=== PATIENT | female | born 1955 | race Caucasian/White ===

== ENCOUNTER 2018-02-08 15:10 | Emergency (ER) | payer OTHER ==
[~2018-02-08] VITALS: Ht 167.6 cm; Wt 83.9 kg
[~2018-02-08 15:10] MED LIST: ASPIRIN325 MG PO; CIPRO 400400 MG/200 IV; CIPRO500 MG PO; DELTASONE10 MG; ENDOMETRIN100 MG PO; FLAGYL500 M1 IV; IRON324 MG PO; KLONOPIN2 MG PO; LYSINE1000 MG PO; MORPHINE4 MG IV; MOTRIN600 MG PO; MOTRIN800 MG PO; MS CONTIN30 MG PO; NEURONTIN100 MG PO; PERCOCET 325 MG1 TA2 PO; PREDNISONE20 MG PO; PRILOSEC20 MG PO; PRILOSEC40 MG PO; RESTORIL15 MG PO; SYNTHROID0.1 MG PO; SYNTHROID0.112 MG PO; VENTOLIN0.09 MG/AC PO; VICO10300 PO; ZITHROMAX Z PA250 MG PO; ZITHROMAX500 MG
[2018-02-08 15:14] VITALS: BP 128/95
== END 2018-02-08 17:08 | disposition home or self-care (01) ==
LOC: ED 15:10
DX: S93.401A Sprain of unspecified ligament of right ankle, initial encounter (principal); M77.31 Calcaneal spur, right foot; Z98.890 Other specified postprocedural states; Z90.49 Acquired absence of other specified parts of digestive tract; Z79.899 Other long term (current) drug therapy; Z88.0 Allergy status to penicillin; Z88.2 Allergy status to sulfonamides; Z88.8 Allergy status to other drugs, medicaments and biological substances; W01.0XXA Fall on same level from slipping, tripping and stumbling without subsequent striking against object, initial encounter; Y93.89 Activity, other specified; Y92.89 Other specified places as the place of occurrence of the external cause; Y99.9 Unspecified external cause status

== ENCOUNTER 2018-08-02 16:13 | Emergency (ER) | payer OTHER ==
[~2018-08-02] VITALS: Ht 165.1 cm; Wt 82.6 kg
[2018-08-02 16:15] VITALS: BP 115/58
[2018-08-02 17:03] LABS: BASO % 0.6 % (0.0-1.0); EOS # 0.1 10*3/uL (0.0-0.4); EOS % 2.3 % (1.0-4.0); HEMATOCRIT 38.1 % (37.0-47.0); HEMOGLOBIN 12.9 g/dl (12.0-16.0); LYMPH # 1.9 10*3/uL (1.3-4.4); LYMPH % 30.3 % (27.0-41.0); MEAN CELL VOLUME 86.4 fl (81.0-99.0); MEAN CORPUSCULAR HGB 29.3 pg (27.0-31.0); MEAN CORPUSCULAR HGB CONC 33.9 g/dl (33.0-37.0); MEAN PLATELET VOLUME 8.9 fl (9.6-12.3); MONO # 0.4 10*3/uL (0.1-1.0); MONO % 5.8 % (3.0-9.0); NEUT # 3.8 10*3/uL (2.3-7.9); NEUT % 60.5 % (47.0-73.0); PLATELET COUNT AUTOMATED 310 10*3/uL (130-400); RED BLOOD COUNT 4.41 10*6/uL (4.10-5.10); RED CELL DISTRI WIDTH 12.2 % (0-14.5); WHITE BLOOD COUNT 6.2 10*3/uL (4.8-10.8)
[2018-08-02 17:18] LABS: ALBUMIN 3.9 gm/dl (3.1-4.5); ALKALINE PHOSPHATASE 87 U/L (45-117); BUN 16 mg/dl (7-24); CHLORIDE 108 mmol/L (98-107); CREATININE 1.05 mg/dL (0.55-1.02); POTASSIUM 4.1 mmol/L (3.5-5.1); SGOT/AST 13 IU/L (3-35); SGPT/ALT 26 U/L (12-78); SODIUM 140 mmol/L (136-145); TOTAL PROTEIN 7.5 gm/dL (6.4-8.2)
[2018-08-02] MEDS ORDERED: PROAIR HFA8.5 GM INH (17:22)
[2018-08-02] MEDS ORDERED: DOXYCYCLINE100 M3 PO (17:22)
[2018-08-02] MEDS ORDERED: AVPAK AZITHROM250 MG PO (17:22)
[2018-08-02] MEDS ORDERED: CHERATUSSIN AC118 M1 PO (17:22)
[2018-08-02] MEDS ORDERED: PREDNISONE20 M1 PO (17:22)
[2018-08-02] MEDS ORDERED: FLONASE ALLERG9.9 ML NAS (17:22)
== END 2018-08-02 17:27 | disposition home or self-care (01) ==
LOC: ED 16:13
PROVIDERS: Nurse Practitioner Family
DX: J06.9 Acute upper respiratory infection, unspecified (principal); J20.9 Acute bronchitis, unspecified; J45.909 Unspecified asthma, uncomplicated; E03.9 Hypothyroidism, unspecified; Z88.0 Allergy status to penicillin; Z88.2 Allergy status to sulfonamides; Z88.8 Allergy status to other drugs, medicaments and biological substances; Z79.899 Other long term (current) drug therapy; Z90.49 Acquired absence of other specified parts of digestive tract

== ENCOUNTER 2018-12-16 12:17 | Emergency (ER) | payer OTHER ==
[~2018-12-16] VITALS: Ht 167.6 cm; Wt 84.8 kg
[~2018-12-16 12:17] MED LIST changes: +AVPAK AZITHROM250 MG PO; +CHERATUSSIN AC118 M1 PO; +DOXYCYCLINE100 M3 PO; +FLONASE ALLERG9.9 ML NAS; +PREDNISONE20 M1 PO; +PREDNISONE50 MG PO; +PROAIR HFA8.5 GM INH; +VENTOLIN 02.5 MG/3 M INH
[2018-12-16 12:19] VITALS: BP 130/55
[2018-12-16 13:10] LABS: BASO % 0.7 % (0.0-1.0); EOS # 0.3 10*3/uL (0.0-0.4); EOS % 4.7 % (1.0-4.0); HEMATOCRIT 39.5 % (37.0-47.0); HEMOGLOBIN 13.2 g/dl (12.0-16.0); LYMPH % 16.6 % (27.0-41.0); MEAN CELL VOLUME 87.8 fl (81.0-99.0); MEAN CORPUSCULAR HGB 29.3 pg (27.0-31.0); MEAN CORPUSCULAR HGB CONC 33.4 g/dl (33.0-37.0); MEAN PLATELET VOLUME 9.1 fl (9.6-12.3); MONO # 0.4 10*3/uL (0.1-1.0); MONO % 7.3 % (3.0-9.0); NEUT % 70.4 % (47.0-73.0); PLATELET COUNT AUTOMATED 334 10*3/uL (130-400); RED CELL DISTRI WIDTH 12.7 % (0-14.5); WHITE BLOOD COUNT 5.7 10*3/uL (4.8-10.8)
[2018-12-16 13:25] LABS: ALKALINE PHOSPHATASE 92 U/L (45-117); BUN 13 mg/dl (7-24); CHLORIDE 108 mmol/L (98-107); CREATININE 1.14 mg/dL (0.55-1.02); SGOT/AST 19 IU/L (3-35); SGPT/ALT 31 U/L (12-78); SODIUM 141 mmol/L (136-145); TOTAL PROTEIN 7.9 gm/dL (6.4-8.2)
[2018-12-16 13:26] LABS: TROPONIN I < 0.015 ng/ml (<0.045)
[2018-12-16 13:27] LABS: BILIRUBIN NEGATIVE (NEGATIVE); BLOOD TRACE-INTACT (NEGATIVE); CLARITY SL CLOUDY (CLEAR); COLOR YELLOW (YELLOW); GLUCOSE NEGATIVE (NEGATIVE); KETONE TRACE (NEGATIVE); LEUKO ESTERASE 1+ (NEGATIVE); NITRITE NEGATIVE (NEGATIVE); UROBILINOGEN 0.2 E.U./dl (0.2-1.0)
[2018-12-16 13:35] LABS: BACTERIA 1+; CALCIUM OXALATE CRYSTALS 2+; RBC 16-20 rbc/hpf (0-2)
[2018-12-16 13:36] LABS: EPITHELIAL CELLS 16-20; MUCOUS 1+
[2018-12-16] MEDS ORDERED: MUCINEX1200 M1 PO (14:20)
[2018-12-16] MEDS ORDERED: ZITHROMAX500 MG PO (14:20)
[2018-12-16] MEDS ORDERED: PREDNISONE10 MG PO (14:20)
[2018-12-16] MEDS ORDERED: CHERATUSSIN AC118 M1 PO (14:21)
== END 2018-12-16 14:25 | disposition home or self-care (01) ==
LOC: ED 12:17
PROVIDERS: Registered Nurse
DX: J20.9 Acute bronchitis, unspecified (principal); J45.901 Unspecified asthma with (acute) exacerbation; Z79.899 Other long term (current) drug therapy; Z88.0 Allergy status to penicillin; Z88.2 Allergy status to sulfonamides; Z88.8 Allergy status to other drugs, medicaments and biological substances

== ENCOUNTER 2019-11-16 21:37 | Emergency (ER) | payer OTHER ==
[~2019-11-16 21:37] MED LIST changes: +MUCINEX1200 M1 PO; +PREDNISONE10 MG PO; +ZITHROMAX500 MG PO
[2019-11-16 22:17] LABS: HEMATOCRIT 36.7 % (37.0-47.0); LYMPH # 0.5 10*3/uL (1.3-4.4); LYMPH % 14.8 % (27.0-41.0); MEAN CELL VOLUME 87.2 fl (81.0-99.0); MEAN CORPUSCULAR HGB 29.7 pg (27.0-31.0); MEAN CORPUSCULAR HGB CONC 34.1 g/dl (33.0-37.0); MEAN PLATELET VOLUME 10.1 fl (9.6-12.3); MONO # 0.2 10*3/uL (0.1-1.0); MONO % 6.3 % (3.0-9.0); NEUT # 2.8 10*3/uL (2.3-7.9); NEUT % 78.6 % (47.0-73.0); PLATELET COUNT AUTOMATED 247 10*3/uL (130-400); RED BLOOD COUNT 4.21 10*6/uL (4.10-5.10); RED CELL DISTRI WIDTH 12.6 % (0-14.5); WHITE BLOOD COUNT 3.5 10*3/uL (4.8-10.8)
[2019-11-16 22:33] LABS: ALBUMIN 3.5 gm/dl (3.1-4.5); ALKALINE PHOSPHATASE 87 U/L (45-117); BUN 13 mg/dl (7-24); CHLORIDE 104 mmol/L (98-107); CREATININE 0.85 mg/dL (0.55-1.02); SGOT/AST 55 IU/L (3-35); SGPT/ALT 39 U/L (12-78); SODIUM 134 mmol/L (136-145)
[2019-11-16 22:34] LABS: POTASSIUM 4.3 mmol/L (3.5-5.1)
[2019-11-16 23:07] VITALS: BP 116/56
[2019-11-18] MEDS ORDERED: ZOFRAN4 MG PO (17:28)
== END 2019-11-17 00:09 | disposition home or self-care (01) ==
LOC: ED 21:37
PROVIDERS: Internal Medicine
DX: J22 Unspecified acute lower respiratory infection (principal); B97.29 Other coronavirus as the cause of diseases classified elsewhere; Z88.0 Allergy status to penicillin; Z88.2 Allergy status to sulfonamides; Z88.8 Allergy status to other drugs, medicaments and biological substances; Z79.899 Other long term (current) drug therapy

== ENCOUNTER 2019-11-18 15:44 | Emergency (ER) | payer OTHER ==
[~2019-11-18] VITALS: Ht 167.6 cm; Wt 77.1 kg
[2019-11-18 15:50] VITALS: BP 120/64
[2019-11-18 16:24] LABS: BASO % 0.3 % (0.0-1.0); HEMATOCRIT 34.9 % (37.0-47.0); LYMPH # 0.7 10*3/uL (1.3-4.4); LYMPH % 20.7 % (27.0-41.0); MEAN CELL VOLUME 86.6 fl (81.0-99.0); MEAN CORPUSCULAR HGB CONC 33.5 g/dl (33.0-37.0); MEAN PLATELET VOLUME 9.5 fl (9.6-12.3); MONO # 0.1 10*3/uL (0.1-1.0); MONO % 3.8 % (3.0-9.0); NEUT # 2.4 10*3/uL (2.3-7.9); NEUT % 74.9 % (47.0-73.0); PLATELET COUNT AUTOMATED 232 10*3/uL (130-400); RED BLOOD COUNT 4.03 10*6/uL (4.10-5.10); RED CELL DISTRI WIDTH 12.6 % (0-14.5); WHITE BLOOD COUNT 3.1 10*3/uL (4.8-10.8)
[2019-11-18 16:36] LABS: ACT PARTIAL THROMBO TIME 28.5 SECONDS (20.0-32.1)
[2019-11-18 16:41] LABS: ALBUMIN 3.1 gm/dl (3.1-4.5); ALKALINE PHOSPHATASE 80 U/L (45-117); BUN 10 mg/dl (7-24); CHLORIDE 110 mmol/L (98-107); CPK 73 U/L (26-192); CREATININE 0.76 mg/dL (0.55-1.02); LDH 294 U/L (84-246); LIPASE 187 U/L (73-393); POTASSIUM 3.6 mmol/L (3.5-5.1); SGOT/AST 34 IU/L (3-35); SGPT/ALT 31 U/L (12-78); SODIUM 140 mmol/L (136-145); TOTAL PROTEIN 7.1 gm/dL (6.4-8.2); TROPONIN I < 0.015 ng/ml (<0.045)
[2019-11-18] MEDS ORDERED: ZOFRAN4 MG PO (17:28)
== END 2019-11-18 17:49 | disposition home or self-care (01) ==
LOC: ED 15:44
PROVIDERS: Emergency Medicine
DX: J22 Unspecified acute lower respiratory infection (principal); B97.29 Other coronavirus as the cause of diseases classified elsewhere; Z79.899 Other long term (current) drug therapy